=== PATIENT | male | born 1980 | race Caucasian/White ===

== ENCOUNTER 2018-05-01 06:08 | Observation (INO) | payer BC ==
[2018-05-01] MEDS ORDERED: GELATIN SIZE 100 SPONGE (07:08)
[2018-05-01] MEDS ORDERED: MIDAZOLAM 1 MG/ML 2 ML INJ (07:30)
[2018-05-01] MEDS ORDERED: BUPIVACAINE 0.25%/EPI (MDV) 50 ML VIAL INJ (07:39)
[2018-05-01] MEDS ORDERED: ROCURONIUM 50 MG INJ ×2 (07:50→08:01)
[2018-05-01] MEDS ORDERED: SUCCINYLCHOLINE CHLORIDE 100 MG/5 ML SYG IV ×2 (07:50→08:12)
[2018-05-01] MEDS ORDERED: LIDOCAINE 2% (SDV) 5 ML INJ (07:50)
[2018-05-01] MEDS ORDERED: ONDANSETRON 4 MG INJ (07:50)
[2018-05-01] MEDS ORDERED: PROPOFOL 40 ML (07:50)
[2018-05-01] MEDS ORDERED: DEXAMETHASONE 4 MG/ML 1 ML INJ (07:51)
[2018-05-01] MEDS ORDERED: FAMOTIDINE 20 MG INJ (07:51)
[2018-05-01] MEDS ORDERED: CEFAZOLIN 1 GM INJ (07:52)
[2018-05-01] MEDS ORDERED: HYDROmorphONE 2 MG/ML SYG (07:56)
[2018-05-01] MEDS: POLYMYXIN/BACITRACIN 1L IRRIG (08:12)
[2018-05-01] MEDS: HEMOSTATIC MATRIX SYG ZFS ×3 (08:12→10:35)
[2018-05-01] MEDS: LIDOCAINE 1%/EPI 30 ML INJ (08:12)
[2018-05-01] MEDS: THROMBIN 5000 UNIT VIAL (08:12)
[2018-05-01] MEDS ORDERED: SUGAMMADEX SODIUM 200 MG/2 ML VIAL IV (11:53)
[2018-05-01] MEDS ORDERED: PROCHLORPERAZINE 10 MG INJ IV (12:30)
[2018-05-01] MEDS ORDERED: ACETAMINOPHEN 325 MG TAB PO (12:30)
[2018-05-01] MEDS ORDERED: NACL 0.9% 3 ML SYG IV (12:30)
[2018-05-01] MEDS ORDERED: NALOXONE (0.4 MG/ML) INJ IV (12:30)
[2018-05-01] MEDS ORDERED: LABETALOL HCL 20MG INJ IV (12:30)
[2018-05-01] MEDS ORDERED: FENTAnyl 50 MCG/ML VIAL IV ×3 (12:30)
[2018-05-01] MEDS ORDERED: MEPERIDINE 25 MG INJ IV (12:30)
[2018-05-01] MEDS ORDERED: HYDROmorphONE 0.5 MG/0.5 ML SYG IV (12:30)
[2018-05-01] MEDS ORDERED: PROCHLORPERAZINE 10 MG TAB PO (12:30)
[2018-05-01] MEDS ORDERED: hydrALAzine 20 MG INJ IV (12:30)
[2018-05-01] MEDS ORDERED: HYDROmorphONE 1 MG/5 ML IV SYRINGE IV ×3 (12:30)
[2018-05-01] MEDS ORDERED: ONDANSETRON 4 MG INJ IV (12:30)
[2018-05-01] MEDS ORDERED: DIPHENHYDRAMINE 50 MG INJ IV (12:30)
[2018-05-01] MEDS ORDERED: OXYCODONE/ACETAMINOPHEN (5/325) TAB PO (12:30)
[2018-05-01] MEDS: HYDROCODONE/APAP (5/325) TAB PO ×3 (13:15→20:09)
[2018-05-01] MEDS: ONDANSETRON 4 MG INJ IV (16:28)
[2018-05-01] MEDS ORDERED: METOCLOPRAMIDE 10 MG INJ IV (19:00)
[2018-05-01] MEDS: DEXAMETHASONE 10 MG/ML 1 ML INJ IV (20:01)
[2018-05-01] MEDS: LACTATED RINGER'S 1,000 ML IV (20:08)
[2018-05-01] MEDS: GABAPENTIN 300 MG CAP PO (21:25)
[2018-05-02] MEDS: HYDROCODONE/APAP (5/325) TAB PO ×3 (00:30→10:17)
[2018-05-02] MEDS: LACTATED RINGER'S 1,000 ML IV (05:46)
[2018-05-02] MEDS: GABAPENTIN 300 MG CAP PO (09:12)
== END 2018-05-02 11:05 | disposition home or self-care (01) ==
LOC: SDS 06:08 → MS1 18:30 → SDS 17:53 → MS1 17:53
DX: M51.16 Intervertebral disc disorders with radiculopathy, lumbar region (principal); E66.9 Obesity, unspecified; Z68.35 Body mass index [BMI] 35.0-35.9, adult
CPT/HCPCS: 63030; 72100; 97116; 97161; 97530